=== PATIENT | male | born 1980 | race Caucasian/White ===

== ENCOUNTER 2016-12-14 15:20 | Emergency (ER) | payer OTHER ==
[~2016-12-14] VITALS: Ht 185.4 cm; Wt 122.8 kg
[2016-12-14 15:29] VITALS: BP 133/95
[2016-12-14] MEDS ORDERED: MOTRIN800 MG PO (17:33)
[2016-12-14] MEDS ORDERED: FLEXERIL10 MG PO (17:33)
== END 2016-12-14 18:02 | disposition home or self-care (01) ==
LOC: EME 15:20
DX: S16.1XXA Strain of muscle, fascia and tendon at neck level, initial encounter (principal); V49.40XA Driver injured in collision with unspecified motor vehicles in traffic accident, initial encounter
CPT/HCPCS: 99281; 99284

== ENCOUNTER 2018-05-07 14:21 | Emergency (ER) | payer BC ==
[~2018-05-07] VITALS: Ht 193 cm; Wt 121.0 kg
[~2018-05-07 14:21] MED LIST: FLEXERIL10 MG PO; MOTRIN800 MG PO
[2018-05-07] MEDS ORDERED: CONCERTA54 MG PO (16:24)
[2018-05-07] MEDS ORDERED: LUMIGAN 0.50 DROP/22 BOTH EYES (16:24)
[2018-05-07 16:36] VITALS: BP 140/73
== END 2018-05-07 16:37 | disposition home or self-care (01) ==
LOC: EME 14:21
DX: S93.402A Sprain of unspecified ligament of left ankle, initial encounter (principal); X50.9XXA Other and unspecified overexertion or strenuous movements or postures, initial encounter; Y93.01 Activity, walking, marching and hiking; Z88.6 Allergy status to analgesic agent; Z88.5 Allergy status to narcotic agent
CPT/HCPCS: 73610; 99281; 99283